=== PATIENT | female | born 1935 | race Caucasian/White ===

== ENCOUNTER 2017-10-23 05:57 | Inpatient (IN) ==
[2017-10-23] MEDS ORDERED: 0.9 % Sodium Chloride 1,000 ML IVC ONE (06:06)
[2017-10-23] MEDS ORDERED: *HR* FentaNYL (PF) 100 MCG/2 ML VIAL IVP ONE (06:06)
--- NOTE | 2017-10-23 06:09 | Emergency Department Note ---
Disposition Clinical Impression: Fall Qualifiers: Encounter type: initial encounter Qualified Code(s): W19.XXXA - Unspecified fall, initial encounter Disposition: Still a Patient Condition: Fair Forms: ED Satisfaction Letter Fall HPI - General Chief Complaint: ED Fall Stated Complaint: fall, right leg pain Time Seen by Provider: 10/23/17 06:02 Source: patient Mode of arrival: EMS Limitations: no limitations Nursing Notes Reviewed: Yes Vital Signs Reviewed: Yes - History of Present Illness HPI Narrative: 82-year-old female presents to the emergency department via EMS for a ball. The subsequent mechanical fall as her bottle and went off and they found her 4 feet away from her bed. Patient is not on a blood thinner she is DNR CCA. She is complaining of mainly right hip pain and she did arrive she had a c-collar on put on via EMS. Patient is unable to move her right leg. She says the pain is 10 out of 10 nonradiating located mainly in the right hip and right leg. To sharp stabbing pain Otherwise she is having no complaints including no headache , blurry vision, neck pain, back pain, fevers, chest pain, shortness of breath, abdominal pain, pain with urination, loss of bladder or bowels - Related Data Previous Rx's Medication Instructions Recorded Lactulose 10 gm PO BID PRN #250 mls 03/30/15 Oxycodone HCl/Acetaminophen 1 each PO Q4HR PRN #8 tablet 07/24/16 [Percocet 5-325 mg Tablet] Allergies Allergy/AdvReac Type Severity Reaction Status Date / Time No Known Allergies Allergy Verified 04/12/15 18:53 Review of Systems: 10 point review of systems done and negative unless otherwise stated in the history of present illness. All systems ED: reviewed and negative except as stated. 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 - Social History Smoking Status: Former smoker Alcohol use: Reports: none Drug use: Reports: none Physical Exam - General Limitations: no limitations General appearance: alert, in no apparent distress - Head Head exam: atraumatic, normocephalic, normal inspection - Eye Eye exam: Present: normal appearance, PERRL, EOMI - ENT ENT exam: normal exam, normal oropharynx, mucous membranes moist - Neck Neck exam: Present: normal inspection, full ROM, trachea midline - Chest Chest inspection: Present: normal inspection, symmetric chest wall rise - Respiratory Respiratory exam: Present: normal lung sounds bilaterally - Cardiovascular Cardiovascular exam: Present: regular rate, normal rhythm, normal heart sounds - Abdominal Exam Abdominal exam: Present: soft, Non-Tender. Absent: tenderness, distention, guarding, rebound, rigidity - Expanded Lower Extremity Exam Hip/Pelvis exam: Present: tenderness (Tenderness while palpating the right hip unable to examine rotation or shortening G to patient having pain.). Absent: full ROM, swelling, abrasion, dislocation Neurovascular/Tendon exam: Present: normal capillary refill. Absent: pulse deficit (Bilateral pedal pulses), motor deficit, sensory deficit - Back Exam Back exam: Present: normal inspection, full ROM. Absent: tenderness - Neurological Exam Neurological exam: Present: alert, oriented X3 - Skin Skin exam: Present: warm, dry, intact, normal color Course Course Narrative: 82-year-old 30 presents to the emergency department from nursing facility via EMS for a fall. Patient is on a Coumadin will get CT of her head and neck due to the unknown fall. This was a mechanical fall. We will get CT of her pelvis due to the right hip pain. We will give patient IV fluids and fentanyl for pain control. Patient is okay with this plan. Disposition pending result Vital Signs Temperature 0 F L 10/23/17 06:06 Pulse Rate 76 10/23/17 06:06 Respiratory Rate 20 10/23/17 06:06 Blood Pressure 130/92 10/23/17 06:06 O2 Sat by Pulse Oximetry 96 10/23/17 06:06 Temperature 0 F L 10/23/17 06:06 Pulse Rate 76 10/23/17 06:06 Respiratory Rate 20 10/23/17 06:06 Blood Pressure 130/92 10/23/17 06:06 O2 Sat by Pulse Oximetry 96 10/23/17 06:06 Oxygen Delivery Oxygen Delivery Room Air Fall - MDM Narrative Medical decision making narrative: 82-year-old female presented with right hip pain after a fall as mechanical fall. We did order CTs I gave panel and IV fluids. Ankit did help with the pain. CT of head and neck are still pending at this time as well as the pelvis. This patient will be signed out to the day team physician. They will follow up on all imaging and make disposition. - Medical Records Medical records reviewed: Yes I reviewed the patient's medical records.
--- NOTE | 2017-10-23 06:27 | Emergency Department Note ---
START Narrative - START START: I examined this patient and my medical decision-making was reviewed with the Resident Physician. I agree with the documented findings, disposition and treatment plan as described except to the extent set forth below. 82 year old john presnets to the ED via EMS [facility]. Virgen states that she is having right hip pain and hit her head without LOC and is not on blood thinners. WE will do CT head, neck, pelvis to rule out fracutre and bleed. Her right hip is internaly rotated and shorter than the left. We will likely sign out patient to the day team.
[2017-10-23] MEDS ORDERED: *HR* LORazepam 0.5 MG TABLET PO ONE (09:25)
[2017-10-23 10:17] LABS: Basophils % 0.1 %; Eosinophils % 0.1 %; Hematocrit 33.8 % (35.3-44.9); Hemoglobin 10.9 g/dL (11.5-15.4); Immature Granulocytes % 0.4 % (0-4); Lymphocytes # 0.3 K/mcL (0.6-4.6); Lymphocytes % 3.5 %; Mean Corpuscular HGB Conc 32.2 g/dL (31.6-35.5); Mean Corpuscular Hemoglobin 31.6 pg (28.0-33.3); Mean Platelet Volume 10.5 fL (9.4-12.4); Monocytes # 0.4 K/mcL (0.0-1.3); Monocytes % 4.3 %; Platelet Count 169 K/mcL (140-400); Red Blood Count 3.45 M/mcL (3.82-4.97); Red Cell Distribution Width 12.5 % (11.5-14.5); Segmented Neutrophils % 91.6 %
[2017-10-23 10:23] LABS: INR 1.2; Prothrombin Time 12.5 Seconds (9.4-12.1)
--- NOTE | 2017-10-23 10:45 | Internal Med History&Physical ---
Date of Encounter: 10/23/17 Time of Encounter: 10:32 Assessment and Plan (1) Intertrochanteric fracture of right femur Current visit: Yes Status: Acute Patient takes Morphine sublingual 5 mg Q4H prn and Percocet 5/325 mg Q4H prn, will resume this. Takes Senna, polyethylene glycol, lactulose, dulcolax for constipation. Will need close monitoring to avoid adverse effects of opiates including sedation and constipation Consulte Orthpedic surgery; Dr. Wells was notified in the ED BMP, INR NPO for now until Ortho eval. Qualifiers: Encounter type: initial encounter Fracture type: closed Fracture alignment: nondisplaced Qualified Code(s): S72.144A - Nondisplaced intertrochanteric fracture of right femur, initial encounter for closed fracture Internal Medicine - H&P: HPI History of present illness: 82-year-old female presents to the emergency department via EMS for a fall. Patient came from skilled nursing. Reported as a mechanical fall 4 feet away from her bed. She is on Percocet at home, no listed anticoagulants. She has dementia at baseline. Patient denied pain to me but she recently received Fentanyl at the time of my evaluation of patient. Per EMR she did initially arrive with 10/10 non-radiating right hip pain and leg pain described as stabbing. She had no initial complaints of headache, blurry vision, neck pain , back pain, fevers, chest pain, shortness of breath, abdominal pain, pain with urination, loss of bladder or bowels. Family present at bedside and states that she has dementia and able to identify herself and only close family members. At baseline she is not aware of her surroundings. In the Ed she was given IV fluids and Fentanyl. CT head without contrast showed a right frontal scalp hematoma but no acute intracranial abnormalities. A CT of pelvis showed right femoral intertrochanteric neck fracture with impaction of fracture fragments. Also incidentally noted large amount of stool in rectal vault with concern for fecal impaction. A CT of lumbar spine showe acute superior endplate deformity of L3 with about 20% loss of vertebral body height. CT of thoracic spine showed an age indeterminate T2 superior endplate compression deformity. Past Med Surg Social Fam HX - Past Medical History Medical history: dementia, fibromyalgia, other Psychiatric history: anxiety - Past Surgical History Surgical History: cholecystectomy - Social History Smoking Status: Former smoker Smokeless Tobacco Status: No Alcohol use: none Drug use: none Internal Medicine - H&P: Meds Lactulose 10 gm PO BID PRN #250 mls 03/30/15 [Rx] Oxycodone HCl/Acetaminophen [Percocet 5-325 mg Tablet] 1 each PO Q4HR PRN #8 tablet 07/24/16 [Rx] Acetaminophen [Tylenol 650mg SUPP] 650 mg RC Q4H PRN 10/23/17 [History] Aspirin [Lo-Dose Aspirin EC] 81 mg PO DAILY 10/23/17 [History] Bisacodyl [Dulcolax] 10 mg RC DAILY PRN 10/23/17 [History] Gabapentin [Neurontin] 100 mg PO HS 10/23/17 [History] Hyoscyamine Sulfate [Oscimin Sl] 0.125 mg SL Q2H PRN 10/23/17 [History] Lactose-Reduced Food [Ensure Original] 1 bottle PO TID 10/23/17 [History] Lansoprazole [Prevacid] 30 mg PO DAILY 10/23/17 [History] MORPHINE SUL Oral CONC [Roxanol Oral Conc] 5 mg PO Q4H PRN 10/23/17 [History] Polyethylene Glycol 3350 [Gavilax] 17 gm PO DAILY PRN 10/23/17 [History] Promethazine [Phenergan] 25 mg RC Q6HR PRN 10/23/17 [History] Sennosides [Senna] 8.6 mg PO DAILY 10/23/17 [History] Sertraline [Zoloft] 100 mg PO DAILY 10/23/17 [History] fluvoxaMINE [Luvox] 100 mg PO HS 10/23/17 [History] 3 Allergy/AdvReac Type Severity Reaction Status Date / Time No Known Allergies Allergy Verified 04/12/15 18:53 All Systems PM: A 10-system review of systems was performed and is negative for pertinent findings except as documented above in the HPI. Review of systems: Limited due to patient dementia and confusion. She denies pain, fevers/chills. Admits to decreased ROM of right hip. - Constitutional Vitals: Temp Pulse Resp BP Pulse Ox 0 F L 79 18 150/74 95 10/23/17 06:06 10/23/17 07:31 10/23/17 07:31 10/23/17 07:31 10/23/17 07:31 General appearance: Present: A&O X 1, no acute distress. Absent: answers questions appropriately - Head Head exam: Present: normocephalic Additional comments: Right scalp hematoma without active bleed. - Eye Eye exam: Present: PERRL, conjuntiva pink, sclera anicteric Pupils: Present: PERRL - Neck Neck exam general surgery: Present: supple, trachea midline. Absent: lymphadenopathy - Respiratory Respiratory exam: Present: CTAB. Absent: accessory muscle use, rales, rhonchi, wheezes - Cardiovascular Cardiovascular exam: Present: RRR, +S1, +S2. Absent: diastolic murmur, gallop, rubs, systolic murmur - GI/Abdominal GI/Abdominal exam: Present: normal bowel sounds, soft, no peritoneal signs. Absent: distended, tenderness - Extremities Exam Extremities exam: Present: warm, radial pulses palpable and symmetrical. Absent : calf tenderness, cyanotic, pedal edema Additional comments: Tenderness to right hip. Lower right extremity is rotated and shortened compared to left leg. Normal cap refill, normal tibia pulses bilaterally. - Neurological Exam Neurological exam: Present: CN II-XII intact, oriented X3, no focal deficits. Absent: pronater drift, facial droop, speech deficit - Skin Skin exam: Present: dry, intact Internal Med - H&P Results - Labs CBC & Chem 7: 10/23/17 10:01
[2017-10-23 10:49] LABS: Alanine Aminotransferase 12 Units/L (7-52); Albumin 3.7 g/dL (3.5-5.7); Albumin/Globulin Ratio 1.4 (1.1-2.2); Alkaline Phosphatase 86 Units/L (34-104); Aspartate Amino Transferase 16 Units/L (13-39); BUN/Creatinine Ratio 28 (6-26); Bilirubin,Total 0.9 mg/dL (0.3-1.0); Blood Urea Nitrogen 16 mg/dL (8-23); Calcium 8.9 mg/dL (8.6-10.3); Carbon Dioxide 24 mEq/L (23-29); Chloride 108 mEq/L (98-107); Globulin 2.6 g/dL (2.4-3.5); Glucose 124 mg/dL (70-105); Osmolality,Calculated 291 (280-300); Potassium 4.1 mEq/L (3.5-5.1); Sodium 139 mEq/L (136-145); Total Protein 6.3 g/dL (6.4-8.9); eGFR For African Americans > 60 (> 60); eGFR For Non-African Americans > 60 (> 60)
[2017-10-23] MEDS ORDERED: Acetaminophen 650 MG RECTAL SUPP RC PRN ×2 (10:49→18:19)
[2017-10-23] MEDS ORDERED: *HR* OxyCODONE/APAP 5/325 TABLET PO PRN ×2 (10:49→18:19)
[2017-10-23] MEDS ORDERED: Bisacodyl 10 MG RECTAL SUPPOSITORY RC PRN ×2 (10:49→18:19)
[2017-10-23] MEDS ORDERED: Lactulose Oral Soln 20 GM/30 ML UDC PO PRN (10:49)
[2017-10-23] MEDS ORDERED: Hyoscyamine SL 0.125 MG TAB.SUBL SL PRN ×2 (10:49→18:19)
[2017-10-23] MEDS ORDERED: POLYETHYLENE GLYCOL 17 GM PO PRN (10:49)
[2017-10-23] MEDS ORDERED: MORPHINE SUL Oral CONC 10 MG/0.5 ML ORAL.SYG PO PRN (10:49)
[2017-10-23 10:53] LABS: Bilirubin,Urine Small (Negative); Blood,Urine Negative (Negative); Clarity,Urine Clear (Clear); Color,Urine Dark Yellow (Yellow); Glucose,Urine (UA) Normal (Normal); Ketones,Urine 15 mg/dL (Negative); Leukocyte Esterase,Urine Negative (Negative); Nitrite,Urine Negative (Negative); Protein,Urine Negative (Neg-Trace); Specific Gravity,Urine 1.022 (1.010-1.025)
[2017-10-23] MEDS ORDERED: Naloxone 0.4 MG/ML INJ IVP PRN ×4 (10:58→18:19)
[2017-10-23] MEDS ORDERED: 0.9 % Sodium Chloride 1,000 ML IVC SCH (11:00)
--- NOTE | 2017-10-23 14:07 | Orthopedic Consult Note ---
Date of Encounter: 10/23/17 Time of Encounter: 13:40 Assessment and Plan (1) Intertrochanteric fracture of right femur Current Visit: Yes Status: Acute Plan for right hip IM nailing today by Dr. Rodriguez. Discussed procedure and r/b/a with family in room. Called son DIANN, discussed again the procedure, r/b/a and got verbal consent for the procedure. Nurse took second verbal consent over the phone. Consent placed in chart in ER. Continue NPO. Continue NWB until surgery. Pain control per hospitalist. Qualifiers: Encounter type: initial encounter Fracture type: closed Fracture alignment: nondisplaced Qualified Code(s): S72.144A - Nondisplaced intertrochanteric fracture of right femur, initial encounter for closed fracture History of Present Illness Chief complaint: right hip pain HPI: Ms. Rodriguez is a 82 year old female who presented to the ER this morning [facility] She was found 4 feet away from bed per report. Patient does have dementia and poor historian. Family present on exam and answered all questions. Patient easily awoken but unable to answer any questions at this time , speech not decipherable and she fell back asleep, family states commonly happens/baseline for her. Family states she has not had anything to eat or drink today. Past Med Surg Social Fam HX - Past Medical History Medical history: dementia, fibromyalgia, other Psychiatric history: anxiety - Past Surgical History Surgical History: cholecystectomy - Social History Smoking Status: Former smoker Smokeless Tobacco Status: No Alcohol use: none Drug use: none - Family History Son Adopted: [place]: Homar Rodriguez Age: 59 Family Member Ethnicity: Non- Living Status: Still Living Medications and Allergies Lactulose 10 gm PO BID PRN #250 mls 03/30/15 [Rx] Oxycodone HCl/Acetaminophen [Percocet 5-325 mg Tablet] 1 each PO Q4HR PRN #8 tablet 07/24/16 [Rx] Acetaminophen [Tylenol 650mg SUPP] 650 mg RC Q4H PRN 10/23/17 [History] Aspirin [Lo-Dose Aspirin EC] 81 mg PO DAILY 10/23/17 [History] Bisacodyl [Dulcolax] 10 mg RC DAILY PRN 10/23/17 [History] Gabapentin [Neurontin] 100 mg PO HS 10/23/17 [History] Hyoscyamine Sulfate [Oscimin Sl] 0.125 mg SL Q2H PRN 10/23/17 [History] Lactose-Reduced Food [Ensure Original] 1 bottle PO TID 10/23/17 [History] Lansoprazole [Prevacid] 30 mg PO DAILY 10/23/17 [History] MORPHINE SUL Oral CONC [Roxanol Oral Conc] 5 mg PO Q4H PRN 10/23/17 [History] Polyethylene Glycol 3350 [Gavilax] 17 gm PO DAILY PRN 10/23/17 [History] Promethazine [Phenergan] 25 mg RC Q6HR PRN 10/23/17 [History] Sennosides [Senna] 8.6 mg PO DAILY 10/23/17 [History] Sertraline [Zoloft] 100 mg PO DAILY 10/23/17 [History] fluvoxaMINE [Luvox] 100 mg PO HS 10/23/17 [History] 3 Allergy/AdvReac Type Severity Reaction Status Date / Time No Known Allergies Allergy Verified 04/12/15 18:53 ROS unobtainable: due to mental status All Systems Reviewed: The remainder of the systems were reviewed and are negative Physical Exam - Constitutional Vitals: Temp Pulse Resp BP Pulse Ox 98.2 F 87 19 138/68 91 10/23/17 11:02 10/23/17 11:02 10/23/17 11:02 10/23/17 11:02 10/23/17 11:02 Exam: Patient easily awoken from sleep and was alert but not oriented and could not answer questions appropriately, mumbled not decipherable. She did express some pain with gentle movement of RLE, no grimacing upon palpation of right hip. No eccymosis, skin lesions or open wounds noted to right hip. Patient unable to follow commands for motion of other joints. Results - Labs Result Diagrams: 10/23/17 10:01 10/23/17 10:01 Labs: Abnormal lab results RBC 3.45 M/mcL (3.82-4.97) L 10/23/17 10:01 Hgb 10.9 g/dL (11.5-15.4) L 10/23/17 10:01 Hct 33.8 % (35.3-44.9) L 10/23/17 10:01 Neutrophils # 9.0 K/mcL (1.6-8.9) H 10/23/17 10:01 Lymphocytes # 0.3 K/mcL (0.6-4.6) L 10/23/17 10:01 PT 12.5 Seconds (9.4-12.1) H 10/23/17 10:01 Chloride 108 mEq/L (98-107) H 10/23/17 10:01 Creatinine 0.58 mg/dL (0.60-1.20) L 10/23/17 10:01 BUN/Creatinine Ratio 28 (6-26) H 10/23/17 10:01 Glucose 124 mg/dL (70-105) H 10/23/17 10:01 Serum Total Protein 6.3 g/dL (6.4-8.9) L 10/23/17 10:01 Urine Ketones 15 mg/dL (Negative) H 10/23/17 10:43 Urine Bilirubin Small (Negative) H 10/23/17 10:43 Urine Urobilinogen 2.0 mg/dL (Normal) H 10/23/17 10:43 All other labs normal. - Diagnostic results Hip x-ray: report reviewed Hip CT: report reviewed (Comminuted right femoral intertrochanteric neck fracture with impaction of), image reviewed Consult Discharge Plan - Plan Referrals: NONE,PCP [Primary Care Provider] - - Attending Attestation Case and plan of care discussed with supervising physician who was available for all aspects of care.
--- NOTE | 2017-10-23 14:15 | Anesthesia Evaluation PreOp ---
Date of Encounter: 10/23/17 Time of Encounter: 14:13 - Past History Planned Operation: Right Hip IM nail Cardiac History: Denies any Significant Hx Pulmonary History: Former smoker ASSEMBLING INSPECTOR History: Other (Dementia, A/D, Fibromyalgia) Other Medical History: Denies Any Significant HX Anesthesia History: Past Anesthesia (GB) : No Alcohol Use: none Drug use: none Medications and Allergies Lactulose 10 gm PO BID PRN #250 mls 03/30/15 [Rx] Oxycodone HCl/Acetaminophen [Percocet 5-325 mg Tablet] 1 each PO Q4HR PRN #8 tablet 07/24/16 [Rx] Acetaminophen [Tylenol 650mg SUPP] 650 mg RC Q4H PRN 10/23/17 [History] Aspirin [Lo-Dose Aspirin EC] 81 mg PO DAILY 10/23/17 [History] Bisacodyl [Dulcolax] 10 mg RC DAILY PRN 10/23/17 [History] Gabapentin [Neurontin] 100 mg PO HS 10/23/17 [History] Hyoscyamine Sulfate [Oscimin Sl] 0.125 mg SL Q2H PRN 10/23/17 [History] Lactose-Reduced Food [Ensure Original] 1 bottle PO TID 10/23/17 [History] Lansoprazole [Prevacid] 30 mg PO DAILY 10/23/17 [History] MORPHINE SUL Oral CONC [Roxanol Oral Conc] 5 mg PO Q4H PRN 10/23/17 [History] Polyethylene Glycol 3350 [Gavilax] 17 gm PO DAILY PRN 10/23/17 [History] Promethazine [Phenergan] 25 mg RC Q6HR PRN 10/23/17 [History] Sennosides [Senna] 8.6 mg PO DAILY 10/23/17 [History] Sertraline [Zoloft] 100 mg PO DAILY 10/23/17 [History] fluvoxaMINE [Luvox] 100 mg PO HS 10/23/17 [History] 3 Allergy/AdvReac Type Severity Reaction Status Date / Time No Known Allergies Allergy Verified 04/12/15 18:53 - Meds/Allergy Pre-op Review Medications Reviewed: Yes Allergies Reviewed: Yes Beta Blockers on Current Med List: No Anesthesia Results - Labs 10/23/17 10:01 10/23/17 10:01 Anesthesia Exam O2 Sat Height 1.57 m Weight 47.627 kg O2 Sat by Pulse Oximetry 91 O2 Sat by Pulse Oximetry 96 O2 Sat by Pulse Oximetry 95 O2 Sat by Pulse Oximetry 94 O2 Sat by Pulse Oximetry 96 O2 Sat by Pulse Oximetry 96 Vital Signs Temp Pulse Resp BP Pulse Ox 0 F L 76 20 130/92 96 10/23/17 06:06 10/23/17 06:06 10/23/17 06:06 10/23/17 06:06 10/23/17 06:06 Vital Signs/O2 Sat, Most Current Temp Pulse Resp BP Pulse Ox 98.2 F 87 19 138/68 91 10/23/17 11:02 10/23/17 11:02 10/23/17 11:02 10/23/17 11:02 10/23/17 11:02 NPO (# of Hours): > 8 hrs Pain Scale: 0 Pain Scale Used: Numeric (1 - 10) - HEENT Pupil (Motor): Pupils equal, EOMI Mallampati: III Teeth: Poor dentition Oral Opening: Greater than 3 - ASSEMBLING INSPECTOR LOC: Confused, Disoriented ASSEMBLING INSPECTOR Motor: Normal RUE, Normal LUE, Normal RLE, Normal LLE, Normal Face ASSEMBLING INSPECTOR Sensory: Normal: RUE, LUE, RLE, LLE, Face - Cardiac Rhythm: Regular Murmur: None JVD: No Carotid Bruit: No - Pulmonary Breath Sounds: bilateral Clear Respiratory Effort: Symmetrical Anesthesia Assess/Plan ASA Score: 3 Modified [place] Scale for Level of Consciousness: Drowsy, but responsive to commands (Dementia, confused, disoriented, consent obtained for Homar Rodriguez ( son, POA)) Anesthetic Plan: General Recovery Plan: PACU
[2017-10-23] MEDS ORDERED: LACTOSE REDUCED FOOD PO SCH (15:00)
[2017-10-23] MEDS ORDERED: *HR* Propofol 200 MG/20 ML VIAL IVP ONE (15:34)
[2017-10-23] MEDS ORDERED: *HR* FentaNYL (PF) 100 MCG/2 ML VIAL ONE (15:34)
[2017-10-23] MEDS ORDERED: Lidocaine -MPF 2% 2 ML VIAL ONE (16:02)
[2017-10-23] MEDS ORDERED: Acetaminophen IV 1,000 MG/100 ML INFUS..BTL ONE (16:04)
[2017-10-23] MEDS ORDERED: Ondansetron 4 MG/2 ML VIAL ONE (16:43)
[2017-10-23] MEDS ORDERED: *HR* Labetalol 100 MG/20 ML MDV IVP PRN ×2 (16:50→18:19)
[2017-10-23] MEDS ORDERED: *HR* FentaNYL (PF) 100 MCG/2 ML VIAL IVP PRN ×2 (16:50→18:19)
[2017-10-23] MEDS ORDERED: Ondansetron 4 MG/2 ML VIAL IVP ONE ×2 (16:50→18:19)
--- NOTE | 2017-10-23 18:06 | Anesthesia Evaluation Post Op ---
Date of Encounter: 10/23/17 Time of Encounter: 18:05 - Vital Signs Vital Signs: Vital Signs/O2 Sat, Most Current Temp Pulse Resp BP Pulse Ox 98.2 F 92 20 136/68 98 10/23/17 17:39 10/23/17 17:59 10/23/17 17:59 10/23/17 17:59 10/23/17 17:59 - Lungs Lungs: Clear Ascult./Percussion - Airway Airway: Non-obstructed - Cardiovascular Regular Rate - Mental Status Mental Status: Confused, Baseline Status - Pain Pain Scale: 0 Pain Scale used: Numeric (1 - 10) - Nausea Vomiting Nausea Vomiting: Not Present - Hydration Hydration: NPO, Chavez catheter - Discharge PostOp Status: Transfer Patient to floor
--- NOTE | 2017-10-23 18:57 | Emergency Department Note ---
START Narrative - START START: Patient had CT scan of the chest, abdomen, pelvis, thoracic and lumbar spines which showed new acute thoracic compression deformity as well as lumbar deformity. I discussed the case with the on-call spinal surgeon who is willing to treat these. [facility]. This was Dr. Gallegos. Additionally I discussed with orthopedics regarding the patient's hip fracture. The patient will be admitted after basic laboratory analyses were obtained. The patient is admitted in stable condition for evaluation of both thoracic fractures and hip fracture.
[2017-10-23] MEDS ORDERED: Gabapentin 100 MG CAPSULE PO SCH (21:00)
[2017-10-24] MEDS: CeFAZolin Premix DUPLEX 2,000 MG/50 ML BAG IVPB SCH ×2 (00:38→07:38)
[2017-10-24] MEDS: D5% in 0.45% NACL 1,000 ML IVC SCH ×2 (00:51→17:09)
[2017-10-24] MEDS: Gabapentin 100 MG CAPSULE PO SCH ×2 (03:34→19:53)
[2017-10-24 06:34] LABS: Hematocrit 23.4 % (35.3-44.9)
[2017-10-24 06:35] LABS: Hemoglobin 7.7 g/dL (11.5-15.4)
[2017-10-24 06:48] LABS: BUN/Creatinine Ratio 30 (6-26); Blood Urea Nitrogen 16 mg/dL (8-23); Carbon Dioxide 24 mEq/L (23-29); Chloride 110 mEq/L (98-107); Glucose 141 mg/dL (70-105); Osmolality,Calculated 290 (280-300); Potassium 3.9 mEq/L (3.5-5.1); Sodium 138 mEq/L (136-145); eGFR For African Americans > 60 (> 60); eGFR For Non-African Americans > 60 (> 60)
[2017-10-24] MEDS: Cholecalciferol (D-3) 1,000 UNIT TABLET PO SCH (07:39)
--- NOTE | 2017-10-24 08:13 | Internal Med Progress Note ---
<Beni Artis - Last Filed: 10/24/17 13:40> Date of Encounter: 10/24/17 Time of Encounter: 09:30 - Assessment and plan (1) Intertrochanteric fracture of right femur Current Visit: Yes Status: Acute Assessment and plan: s/p ORIF yesterday Patient had no complications overnight Pain meds: Tylenol, Fentanyl, Morphine, Percocet, Gabapentin Bowel regimen: Dulcolax, Senna, Prevacid. We will increase senna plus to 2tab BID DVT Prophylaxis: SQ Lovenox Qualifiers: Encounter type: initial encounter Fracture type: closed Fracture alignment: nondisplaced Qualified Code(s): S72.144A - Nondisplaced intertrochanteric fracture of right femur, initial encounter for closed fracture (2) Anemia Current Visit: Yes Status: Acute Assessment and plan: Acute blood loss anemia Patient Hgb 8.1, (7.7 post-op down from 10.9 overnight). No obvious evidence of bleeding, no melena or hematochezia Patient remains hemodynamically stable at this time We will recheck H/H today, consider transfusion if needed Qualifiers: Other causes of anemia: acute posthemorrhagic Qualified Code(s): D62 - Acute posthemorrhagic anemia (3) Dysphagia Current Visit: Yes Status: Acute Assessment and plan: The patient is not swallowing pills or liquids appropriately We will get a speech consult May need to transition to IV meds if necessary Qualifiers: Dysphagia type: unspecified Qualified Code(s): R13.10 - Dysphagia, unspecified - Subjective Interval history: Patient is unresponsive to communication, does not follow commands. She is alert and sitting in a chair next to the bed, and she moans intermittently. The nurse did mention that she is concerned that she cannot swallow pills, she apparently spent most of her medications out when they were attempted to be given earlier. - Constitutional Vitals: Temp Pulse Resp BP Pulse Ox 98.6 F 85 16 106/63 98 10/24/17 07:04 10/24/17 07:04 10/24/17 07:04 10/24/17 07:04 10/24/17 08:00 General appearance: Present: A&O X 0, disheveled, no acute distress. Absent: answers questions appropriately Exam: Gen.: Vitals noted. No acute distress. HEENT: PERRL/EOMI, oropharynx clear, Normocephalic, moderate hematoma apparent on right frontal face Neck: Supple. No adenopathy. Cardiac: RRR, no murmur, +S1/S2 Pulmonary: CTA bilaterally, no wheezes, rales or rhonchi, equal chest expansion Abdomen: soft, nontender, BS noted, no guarding MSK: ROM intact, no joint swelling noted Extremities: no BLE edema, nontender calf, no cyanosis or clubbing Neuro: A&O, does not respond to commands, communicates with moans and pointing but it appears to be without any directed goal Internal Medicine: Result - Labs CBC & Chem 7: 10/24/17 10:14 10/24/17 10:14 Labs: Short CBC 10/24/17 Range/Units 05:37 Hgb 7.7 L D (11.5-15.4) g/dL Hct 23.4 L (35.3-44.9) % BMP 10/24/17 05:37 Sodium 138 Potassium 3.9 Chloride 110 H Carbon Dioxide 24 BUN 16 Creatinine 0.53 L Glucose 141 H Calcium 8.0 L - ABG Interpretation ABG results: PT/INR, D-dimer PT 12.5 Seconds (9.4-12.1) H 10/23/17 10:01 - Impressions Impressions Fluoroscopy 10/23/17 16:23 IMPRESSION: Intraprocedural fluoroscopic spot images as above. See separate procedure report for more information. D/ / Toy Eli MD / Toy Eil MD Interpreting Provider: Toy Eli MD Hip X-Ray 10/23/17 16:23 IMPRESSION: Intraprocedural fluoroscopic spot images as above. See separate procedure report for more information. D/ / Toy Eli MD / Toy Eli MD Interpreting Provider: Toy Eli MD - VTE Documentation of Mechanical Device: Venous foot pump, device Consult Discharge Plan - Plan Referrals: NONE,PCP [Primary Care Provider] - <Darshan Hodges T - Last Filed: 10/24/17 15:03> Date of Encounter: 10/24/17 - Assessment and plan (1) Intertrochanteric fracture of right femur Current Visit: Yes Status: Acute Qualifiers: Encounter type: initial encounter Fracture type: closed Fracture alignment: nondisplaced Qualified Code(s): S72.144A - Nondisplaced intertrochanteric fracture of right femur, initial encounter for closed fracture (2) Anemia Current Visit: Yes Status: Acute Qualifiers: Other causes of anemia: acute posthemorrhagic (3) Dysphagia Current Visit: Yes Status: Acute Qualifiers: Dysphagia type: unspecified Qualified Code(s): R13.10 - Dysphagia, unspecified - Constitutional Vitals: Temp Pulse Resp BP Pulse Ox 98.0 F 95 18 118/67 96 10/24/17 11:52 10/24/17 11:52 10/24/17 11:52 10/24/17 11:52 10/24/17 11:52 Internal Medicine: Result - Labs CBC & Chem 7: 10/24/17 10:14 10/24/17 10:14 Labs: Short CBC 10/24/17 10/24/17 Range/Units 05:37 10:14 WBC 9.7 (4.3-11.1) K/mcL Hgb 7.7 L D 8.1 L (11.5-15.4) g/dL Hct 23.4 L 24.8 L (35.3-44.9) % Plt Count 153 (140-400) K/mcL Neutrophils # 8.3 (1.6-8.9) K/mcL BMP 10/24/17 10/24/17 05:37 10:14 Sodium 138 138 Potassium 3.9 3.8 Chloride 110 H 109 H Carbon Dioxide 24 22 L BUN 16 17 Creatinine 0.53 L 0.63 Glucose 141 H 178 H Calcium 8.0 L 8.4 L - ABG Interpretation ABG results: PT/INR, D-dimer PT 12.5 Seconds (9.4-12.1) H 10/23/17 10:01 - Impressions Impressions Fluoroscopy 10/23/17 16:23 IMPRESSION: Intraprocedural fluoroscopic spot images as above. See separate procedure report for more information. D/ / Toy Eli MD / Toy Eli MD Interpreting Provider: Tyo Eli MD Hip X-Ray 10/23/17 16:23 IMPRESSION: Intraprocedural fluoroscopic spot images as above. See separate procedure report for more information. D/ / Toy Eli MD / Toy Eli MD Interpreting Provider: Toy Eli MD - Attending Attestation I examined this patient and my medical decision-making was reviewed with the Resident Physician. I agree with the documented findings, disposition and treatment plan as described except to the extent set forth below. 82 F, dementia, almost non-verbal. POD 1 s/p ORIF for R femoral fracture Acute blood loss anemia Alert, oriented X0 Wound dressing is clean and dry High risk of delirium-avoid benzos, patient already on SSRIs, continue home meds , d/c Chavez nurse quietly. Allow family members,orient and reorient, haldo in extreme case of self -harm Acute blood loss anemia-type and screen, hemodynamically stable Rest as in the resident physician's documentation
[2017-10-24] MEDS ORDERED: Sennosides 8.6 MG TABLET PO SCH ×2 (09:00)
[2017-10-24] MEDS: *HR* Enoxaparin 30 MG/0.3 ML SYRINGE SQ SCH ×2 (10:42→17:09)
[2017-10-24 11:07] LABS: Basophils % 0.2 %; Eosinophils # 0.1 K/mcL (0.0-0.6); Eosinophils % 0.8 %; Hematocrit 24.8 % (35.3-44.9); Hemoglobin 8.1 g/dL (11.5-15.4); Immature Granulocytes % 0.3 % (0-4); Lymphocytes # 0.5 K/mcL (0.6-4.6); Lymphocytes % 5.1 %; Mean Corpuscular HGB Conc 32.7 g/dL (31.6-35.5); Mean Corpuscular Hemoglobin 31.9 pg (28.0-33.3); Mean Corpuscular Volume 97.6 fL (83.0-100.0); Mean Platelet Volume 10.8 fL (9.4-12.4); Monocytes # 0.7 K/mcL (0.0-1.3); Monocytes % 7.5 %; Neutrophils # 8.3 K/mcL (1.6-8.9); Platelet Count 153 K/mcL (140-400); Red Blood Count 2.54 M/mcL (3.82-4.97); Red Cell Distribution Width 12.9 % (11.5-14.5); Segmented Neutrophils % 86.1 %
[2017-10-24 11:14] LABS: BUN/Creatinine Ratio 27 (6-26); Blood Urea Nitrogen 17 mg/dL (8-23); Calcium 8.4 mg/dL (8.6-10.3); Carbon Dioxide 22 mEq/L (23-29); Chloride 109 mEq/L (98-107); Glucose 178 mg/dL (70-105); Osmolality,Calculated 292 (280-300); Potassium 3.8 mEq/L (3.5-5.1); Sodium 138 mEq/L (136-145); eGFR For African Americans > 60 (> 60); eGFR For Non-African Americans > 60 (> 60)
--- NOTE | 2017-10-24 16:34 | Orthopedics Progress Note ---
Date of Encounter: 10/24/17 Time of Encounter: 01:20 - Assessment and Plan (1) Intertrochanteric fracture of right femur Current Visit: Yes Status: Acute POD#1 s/p right hip IM nailing 10/23/17 WBAT, PT/OT to assess patient this afternoon if she will cooperate. Dressings to right hip to be changed tomorrow. There is bloody drainage noted not outside of borders drawn roughly 5 hours prior to exam. Nurse will contact if starts to increase more. Pain control per hospitalist. Hgb 7.7. Hospitalist managing. plan for repeat H/H this afternoon to determine possible transfusion. DVT prophylaxis - Will require lovenox 30mg q 12 hrs for 2 weeks then aspirin 81mg daily for 4 weeks Will follow up with Gladys Fonseca PA-C in [facility] office on 11/07/17. Qualifiers: Encounter type: initial encounter Fracture type: closed Fracture alignment: nondisplaced Qualified Code(s): S72.144A - Nondisplaced intertrochanteric fracture of right femur, initial encounter for closed fracture Subjective Principal diagnosis: POD#1 s/p right hip IM nailing 10/23/17 Interval history: Patient doing well today with no concerns from patient or family. She is much more alert today but still not able to communicate well. No events overnight. Discussed with nurse the borders drawn around drainage were drawn around 8am this morning. Drainage has not passed this border for roughly 5 hours now. Drainage likely from directly after surgery. Will continue to monitor. She has not had therapy as of time of exam but plan for this afternoon to attempt to work with her. Objective Vital signs: Vital Signs Temp Pulse Resp BP Pulse Ox 10/24/17 11:52 98.0 F 95 18 118/67 96 10/24/17 08:00 98 10/24/17 07:04 98.6 F 85 16 106/63 98 10/24/17 02:41 98.1 F 79 14 129/70 100 10/23/17 23:06 97.9 F 75 14 129/76 99 10/23/17 21:30 98.4 F 77 16 129/75 100 10/23/17 20:30 98.2 F 77 16 132/78 100 10/23/17 19:30 98.3 F 78 16 125/72 100 10/23/17 19:00 97 F L 83 16 124/77 98 10/23/17 18:34 97.4 F L 91 16 135/84 96 10/23/17 18:09 98.5 F 98 22 126/85 98 10/23/17 17:59 92 20 136/68 98 10/23/17 17:49 90 18 136/70 98 10/23/17 17:39 98.2 F 91 14 139/73 100 Intake and Output 10/24/17 10/24/17 10/24/17 07:59 15:59 23:59 Intake Total 50 / 50 Output Total 125 / 125 100 / 100 Balance -75 / -75 -100 / -100 Intake: IV Fluids 50 / 50 Ancef Premix DUPLEX 2,000 mg In 50 / 50 50 ml @ 100 mls/hr IVPB Q8HR [facility] Rx#:[id number] Oral 0 / 0 Output: Straight Cath 25 / 25 Catheter 100 / 100 100 / 100 Urethral (Chavez) 100 / 100 Other: Weight 48.035 kg Patient Weight 10/24/17 23:59 Weight 48.035 kg Incision: healing (dressings have some visible bloody drainage not outside borders drawn, no surrounding erythema or ecchymosis. no calf tenderness to palpation. good dorsiflexion of foot. grossly NV intact.) - Labs CBC & BMP: 10/24/17 10:14 10/24/17 10:14 Labs: Abnormal lab results RBC 2.54 M/mcL (3.82-4.97) L 10/24/17 10:14 Hgb 8.1 g/dL (11.5-15.4) L 10/24/17 10:14 Hct 24.8 % (35.3-44.9) L 10/24/17 10:14 Lymphocytes # 0.5 K/mcL (0.6-4.6) L 10/24/17 10:14 PT 12.5 Seconds (9.4-12.1) H 10/23/17 10:01 Chloride 109 mEq/L (98-107) H 10/24/17 10:14 Carbon Dioxide 22 mEq/L (23-29) L 10/24/17 10:14 BUN/Creatinine Ratio 27 (6-26) H 10/24/17 10:14 Glucose 178 mg/dL (70-105) H 10/24/17 10:14 Calcium 8.4 mg/dL (8.6-10.3) L 10/24/17 10:14 Serum Total Protein 6.3 g/dL (6.4-8.9) L 10/23/17 10:01 Urine Ketones 15 mg/dL (Negative) H 10/23/17 10:43 Urine Bilirubin Small (Negative) H 10/23/17 10:43 Urine Urobilinogen 2.0 mg/dL (Normal) H 10/23/17 10:43 - VTE Documentation of Mechanical Device: Venous foot pump, device Consult Discharge Plan - Plan Referrals: NONE,PCP [Primary Care Provider] -
[2017-10-24] MEDS ORDERED: *HR* Enoxaparin 30 MG/0.3 ML SYRINGE SQ SCH (17:37)
[2017-10-24] MEDS: Sennosides/Docusate Sodium TABLET PO SCH (20:00)
[2017-10-25 06:15] LABS: Basophils % 0.2 %; Eosinophils # 0.1 K/mcL (0.0-0.6); Eosinophils % 1.5 %; Hemoglobin 6.6 g/dL (11.5-15.4); Immature Granulocytes % 0.3 % (0-4); Lymphocytes # 0.9 K/mcL (0.6-4.6); Lymphocytes % 13.4 %; Mean Corpuscular Hemoglobin 31.7 pg (28.0-33.3); Mean Corpuscular Volume 96.2 fL (83.0-100.0); Mean Platelet Volume 10.8 fL (9.4-12.4); Monocytes # 0.8 K/mcL (0.0-1.3); Monocytes % 12.1 %; Neutrophils # 4.8 K/mcL (1.6-8.9); Platelet Count 120 K/mcL (140-400); Red Blood Count 2.08 M/mcL (3.82-4.97); Red Cell Distribution Width 12.8 % (11.5-14.5); Segmented Neutrophils % 72.5 %
[2017-10-25] MEDS: *HR* Enoxaparin 30 MG/0.3 ML SYRINGE SQ SCH ×3 (06:18→17:50)
[2017-10-25] MEDS: MORPHINE SUL Oral CONC 10 MG/0.5 ML ORAL.SYG PO PRN ×3 (06:18→17:16)
[2017-10-25] MEDS: D5% in 0.45% NACL 1,000 ML IVC SCH (06:19)
[2017-10-25] MEDS ORDERED: Furosemide 20 MG/2 ML VIAL IVP ONE (07:24)
--- NOTE | 2017-10-25 07:40 | Internal Med Progress Note ---
<Beni Artis - Last Filed: 10/25/17 12:58> Date of Encounter: 10/25/17 Time of Encounter: 08:15 - Assessment and plan (1) Intertrochanteric fracture of right femur Current Visit: Yes Status: Acute Assessment and plan: s/p ORIF 10/23/17 Patient had no complications overnight Pain meds: Tylenol, Fentanyl, Morphine, Percocet, Gabapentin Bowel regimen: Dulcolax, Senna, Prevacid. The patient refuses oral meds, may require enemas DVT Prophylaxis: SQ Lovenox is held due to excess blood loss Qualifiers: Encounter type: initial encounter Fracture type: closed Fracture alignment: nondisplaced Qualified Code(s): S72.144A - Nondisplaced intertrochanteric fracture of right femur, initial encounter for closed fracture (2) Anemia Current Visit: Yes Status: Acute Assessment and plan: Acute blood loss anemia, worsened Patient Hgb 6.6, (10.9 -> 7.7 -> 8.1). No obvious evidence of bleeding, no melena or hematochezia Patient remains hemodynamically stable at this time We will transfuse 2U PRBC, with lasix inbetween We will recheck H/H today, if obvious source of bleeding is exposed, we will work to rectify Qualifiers: Anemia type: other cause Other causes of anemia: acute posthemorrhagic Qualified Code(s): D62 - Acute posthemorrhagic anemia (3) Fecal impaction Current Visit: Yes Status: Acute Assessment and plan: Fecal impaction in rectal vault seen on CT The patient does not demonstrate signs of abdominal pain on exam She has had one small bowel movement, however it was insignificant We attempted oral laxative therapy, however she will not take pills We will attempt an enema for disimpaction, and rely on manual digital disimpaction as a last line effort (4) Dysphagia Current Visit: No Status: Acute Assessment and plan: The patient is not swallowing pills or liquids appropriately Speech therapy has seen the patient, and determined there is no necessary intervention The patient CAN swallow, but chooses not to Qualifiers: Dysphagia type: unspecified Qualified Code(s): R13.10 - Dysphagia, unspecified - Subjective Interval history: Patient is unresponsive to communication, does not follow commands. The patient does arouse to verbal stimuli, and she is aphasic when she does try to speak. She does appear to have some form of delirium. She has not been taking her pills overnight, and has not received laxatives as result of this. - Constitutional Vitals: Temp Pulse Resp BP Pulse Ox 99.0 F 86 16 120/65 93 10/25/17 07:37 10/25/17 07:37 10/25/17 07:37 10/25/17 07:37 10/25/17 07:37 General appearance: Present: A&O X 0, disheveled, no acute distress. Absent: answers questions appropriately Exam: Gen.: Vitals noted. No acute distress. HEENT: Normocephalic, moderate hematoma apparent on right frontal face which is improved from prior Neck: Supple. No adenopathy. Cardiac: RRR, no murmur, +S1/S2 Pulmonary: CTA bilaterally, no wheezes, rales or rhonchi, equal chest expansion Abdomen: soft, nontender, BS noted, no guarding MSK: ROM intact, no joint swelling noted Extremities: no BLE edema, nontender calf, no cyanosis or clubbing. The dressing over hip incision appears clean without significant blood loss Neuro: A&O, does not respond to commands, communicates with moans and pointing but it appears to be without any directed goal Internal Medicine: Result - Labs CBC & Chem 7: 10/25/17 05:58 10/25/17 05:58 Labs: Short CBC 10/24/17 10/25/17 Range/Units 10:14 05:58 WBC 9.7 6.6 (4.3-11.1) K/mcL Hgb 8.1 L 6.6 L D (11.5-15.4) g/dL Hct 24.8 L 20.0 L (35.3-44.9) % Plt Count 153 120 L (140-400) K/mcL Neutrophils # 8.3 4.8 (1.6-8.9) K/mcL BMP 10/24/17 10:14 Sodium 138 Potassium 3.8 Chloride 109 H Carbon Dioxide 22 L BUN 17 Creatinine 0.63 Glucose 178 H Calcium 8.4 L - ABG Interpretation ABG results: PT/INR, D-dimer PT 12.5 Seconds (9.4-12.1) H 10/23/17 10:01 - VTE Documentation of Mechanical Device: Venous foot pump, device Consult Discharge Plan - Plan Referrals: NONE,PCP [Primary Care Provider] - <Darshan Hodges T - Last Filed: 10/25/17 14:16> Date of Encounter: 10/25/17 - Assessment and plan (1) Intertrochanteric fracture of right femur Current Visit: Yes Status: Acute Qualifiers: Encounter type: initial encounter Fracture type: closed Fracture alignment: nondisplaced Qualified Code(s): S72.144A - Nondisplaced intertrochanteric fracture of right femur, initial encounter for closed fracture (2) Anemia Current Visit: Yes Status: Acute Qualifiers: Anemia type: other cause Other causes of anemia: acute posthemorrhagic Qualified Code(s): D62 - Acute posthemorrhagic anemia (3) Dysphagia Current Visit: No Status: Acute Qualifiers: Dysphagia type: unspecified Qualified Code(s): R13.10 - Dysphagia, unspecified - Constitutional Vitals: Temp Pulse Resp BP Pulse Ox 97.6 F 100 20 99/60 93 10/25/17 11:27 10/25/17 11:27 10/25/17 11:27 10/25/17 11:27 10/25/17 11:27 Internal Medicine: Result - Labs CBC & Chem 7: 10/25/17 05:58 10/25/17 05:58 Labs: Short CBC 10/25/17 Range/Units 05:58 WBC 6.6 (4.3-11.1) K/mcL Hgb 6.6 L D (11.5-15.4) g/dL Hct 20.0 L (35.3-44.9) % Plt Count 120 L (140-400) K/mcL Neutrophils # 4.8 (1.6-8.9) K/mcL BMP 10/25/17 05:58 Sodium 137 Potassium 3.6 Chloride 109 H Carbon Dioxide 26 BUN 14 Creatinine 0.45 L Glucose 126 H Calcium 8.1 L - ABG Interpretation ABG results: PT/INR, D-dimer PT 12.5 Seconds (9.4-12.1) H 10/23/17 10:01 - Attending Attestation I examined this patient and my medical decision-making was reviewed with the Resident Physician. I agree with the documented findings, disposition and treatment plan as described except to the extent set forth below. 82 F, dementia, almost non-verbal. POD 2 s/p ORIF for R femoral fracture Acute blood loss anemia Alert, oriented X0 Wound dressing is clean and dry, distal extremeieis well perfused, chest is CTAB She developed new low grade trmp this a.m, no current suspicion for sepsis Also Hb dropped to 6.6 this a.m, suspect mostly due to blood loss from surgery, no other evidence of bleeding Agree with 2 units blood transfusion Continue DVT prophylxis, risk of DVT supercedes risk of bleeding as patient is s /p hip surgery and immobile High risk of delirium-avoid benzos, patient already on SSRIs, IM geodeon if necessary continue home meds Allow family members,orient and reorient Rest as in the resident physician's documentation
[2017-10-25] MEDS: Cholecalciferol (D-3) 1,000 UNIT TABLET PO SCH (08:55)
[2017-10-25] MEDS: Sennosides/Docusate Sodium TABLET PO SCH ×2 (08:55→20:22)
[2017-10-25 09:37] LABS: BUN/Creatinine Ratio 31 (6-26); Blood Urea Nitrogen 14 mg/dL (8-23); Calcium 8.1 mg/dL (8.6-10.3); Carbon Dioxide 26 mEq/L (23-29); Chloride 109 mEq/L (98-107); Glucose 126 mg/dL (70-105); Osmolality,Calculated 286 (280-300); Potassium 3.6 mEq/L (3.5-5.1); Sodium 137 mEq/L (136-145); eGFR For African Americans > 60 (> 60); eGFR For Non-African Americans > 60 (> 60)
[2017-10-25] MEDS ORDERED: 0.9 % Sodium Chloride 250 ML ONE ×2 (10:51→17:12)
[2017-10-25] MEDS ORDERED: Milk and Molasses Enema 200 ML RC ONE (11:30)
--- NOTE | 2017-10-25 11:38 | Orthopedics Progress Note ---
Date of Encounter: 10/25/17 Time of Encounter: 11:10 - Assessment and Plan (1) Intertrochanteric fracture of right femur Current Visit: Yes Status: Acute POD#2 s/p right hip IM nailing 10/23/17 WBAT, PT/OT assessed patient yesterday but patient is unable to follow commands. Low Hgb this am put therapy on hold. Hopeful she will be more cooperative when she returns to familiar setting at [facility] to participate in therapy there. Dressings will be changed today. Nurse to call for any concerns. Pain control per hospitalist. Hgb 7.7 to 8.1 yesterday, now 6.6 this am. Hospitalist managing and patient currently receiving transfusion. DVT prophylaxis - Will require lovenox 30mg q 12 hrs for 2 weeks then aspirin 81mg daily for 4 weeks upon discharge based on findings for cause of anemia. Will follow up with Gladys Fonseca PA-C in [facility] office on 11/07/17. Qualifiers: Encounter type: initial encounter Fracture type: closed Fracture alignment: nondisplaced Qualified Code(s): S72.144A - Nondisplaced intertrochanteric fracture of right femur, initial encounter for closed fracture Subjective Principal diagnosis: POD#2 s/p right hip IM nailing 10/23/17 Interval history: Patient doing well today patient has no complaint of pain. Patient currently alert today, smiled when I entered the room. Family not present. No events overnight. Therapy on hold due to low Hgb. Objective Vital signs: Vital Signs Temp Pulse Resp BP Pulse Ox 10/25/17 11:27 97.6 F 100 20 99/60 93 10/25/17 11:12 98.4 F 86 13 105/55 95 10/25/17 07:37 99.0 F 86 16 120/65 93 10/24/17 20:46 100.2 F H 98 14 109/61 93 10/24/17 20:00 98.6 F 104 17 126/82 95 10/24/17 11:52 98.0 F 95 18 118/67 96 Intake and Output 10/24/17 10/25/17 10/25/17 23:59 07:59 15:59 Intake Total 0 / 0 1000 / 1000 300 / 300 Balance 0 / 0 1000 / 1000 300 / 300 Intake: IV Fluids 1000 / 1000 D5% And 0.45% Nacl 1000 Ml Bag 1000 / 1000 1,000 ML @ 75 mls/hr IVC . [id number] Rx#:[id number] Oral 0 / 0 Blood Product 300 / 300 Rbcs Leuko Poor As-1 Unit 300 / 300 [id number] Other: # Urine Diapers 2 1 Incision: healing (drainage has not passed borders in over 24 hours, no surrounding erythema, patient unable to follow commands, no reaction/grimace to palpation around hip incision or calf, grossly NV intact) - Labs CBC & BMP: 10/25/17 05:58 10/25/17 05:58 Labs: Abnormal lab results RBC 2.08 M/mcL (3.82-4.97) L 10/25/17 05:58 Hgb 6.6 g/dL (11.5-15.4) L D 10/25/17 05:58 Hct 20.0 % (35.3-44.9) L 10/25/17 05:58 Plt Count 120 K/mcL (140-400) L 10/25/17 05:58 PT 12.5 Seconds (9.4-12.1) H 10/23/17 10:01 Chloride 109 mEq/L (98-107) H 10/25/17 05:58 Creatinine 0.45 mg/dL (0.60-1.20) L 10/25/17 05:58 BUN/Creatinine Ratio 31 (6-26) H 10/25/17 05:58 Glucose 126 mg/dL (70-105) H 10/25/17 05:58 Calcium 8.1 mg/dL (8.6-10.3) L 10/25/17 05:58 Serum Total Protein 6.3 g/dL (6.4-8.9) L 10/23/17 10:01 Urine Ketones 15 mg/dL (Negative) H 10/23/17 10:43 Urine Bilirubin Small (Negative) H 10/23/17 10:43 Urine Urobilinogen 2.0 mg/dL (Normal) H 10/23/17 10:43 - VTE Documentation of Mechanical Device: Venous foot pump, device Consult Discharge Plan - Plan Referrals: NONE,PCP [Primary Care Provider] -
--- NOTE | 2017-10-25 17:12 | Operative Note ---
Date of procedure: 10/23/17 Pre-op diagnosis: Right hip basicervical fracture Post-op diagnosis: same Procedure: Right hip intramedullary nailing Implants: Synthes TFN Anesthesia: BRIGID Surgeon: Lukas Rodriguez Was there an household personal assistant present: No Estimated blood loss (cc): 200 Specimen: 0 Condition: stable Disposition: PACU Procedure in Detail: The patient received IV antibiotics in the holding area. She was brought to the operating room, sign in was performed. The patient underwent general anesthesia on the hospital bed. She was then transferred to the fracture table in supine position. The patient was positioned with the support groin post, the affected right lower extremity in the traction hartman and the contralateral lower extremity in a well-padded limb hartman with a hip flexed and abducted out of the way. Fluoroscopy was then brought in, the fractures visualized, and the fracture reduced. We checked on AP and true lateral view of the hip. Once satisfactory the right hip, from the pelvis down to the knee, was prepped and draped in usual sterile fashion. A timeout was performed. The level of the greater trochanter was palpated, a 4-5 cm oblique incision was made just proximally, , followed by Bovie dissection. The hip abductor was sharply split in line with its fibers with a curved Hudson scissors. The tip of the greater trochanter was palpable. A curved awl was then positioned on the tip. Its position was checked on fluoroscopy, slightly advanced, and we checked the lateral view. Once appropriately positioned, the aggressive awl was then used to open the proximal femur down to level of the lesser trochanter. A short Trochanteric Femoral Nail Advanced with 130 degree neck angle, 10 mm diameter, was assembled, and appropriately inserted into the proximal femur. The appropriate level was checked under fluoroscopy. The triple trochars of 130 degree neck angle was then positioned against the skin, checking fluoroscopy for positioning. Once satisfactory a 2.5 cm incision was made, the fascia was bluntly split along with the muscle fibers of the vastus lateralis. The triple trocar was advanced up against the lateral cortex. The guidepin was then driven up into the femoral head, checking AP and lateral views. The wire was adjusted as needed. A 85 mm long helical blade was chosen. Overdrilled the guidewire, and the helical blade was tapped in place over the guidewire in standard technique. Once close to the edge of the femoral head, the setscrew was then screwed down. The triple trochars for the distal static locking screw were placed in the jig, a 1 cm longitudinal incision was made. The trochars were advanced to the cortex , and drilled across. The depth was measured and a 36 mm long by 5 mm bicortical screw was placed. All trochars and jig were removed. Final fluoroscopy shots were taken and saved showing good AP and lateral views of the hip and also distally at the tip of the nail. The wounds were irrigated with normal saline. Fascia over the abductors was closed with 0 Vicryl [id number] stitches, including the deep subcutaneous fat layer. Subcutaneous tissues were closed with 2-0 Vicryl, and the skin incisions were closed with carolann. Sterile dressings were applied. The patient was transferred to hospital bed where she was extubated and taken to recovery room in stable condition.
[2017-10-25] MEDS: Gabapentin 100 MG CAPSULE PO SCH (20:22)
[2017-10-26 05:36] LABS: BUN/Creatinine Ratio 35 (6-26); Blood Urea Nitrogen 13 mg/dL (8-23); Carbon Dioxide 26 mEq/L (23-29); Chloride 109 mEq/L (98-107); Glucose 167 mg/dL (70-105); Osmolality,Calculated 290 (280-300); Potassium 3.8 mEq/L (3.5-5.1); Sodium 138 mEq/L (136-145); eGFR For African Americans > 60 (> 60); eGFR For Non-African Americans > 60 (> 60)
[2017-10-26 05:48] LABS: Basophils % 0.1 %; Eosinophils % 0.4 %; Hematocrit 29.7 % (35.3-44.9); Hemoglobin 9.5 g/dL (11.5-15.4); Immature Granulocytes % 0.4 % (0-4); Lymphocytes # 0.5 K/mcL (0.6-4.6); Lymphocytes % 7.2 %; Mean Corpuscular Hemoglobin 30.5 pg (28.0-33.3); Mean Corpuscular Volume 95.5 fL (83.0-100.0); Mean Platelet Volume 10.7 fL (9.4-12.4); Monocytes # 0.7 K/mcL (0.0-1.3); Monocytes % 9.7 %; Neutrophils # 6.1 K/mcL (1.6-8.9); Platelet Count 122 K/mcL (140-400); Red Blood Count 3.11 M/mcL (3.82-4.97); Red Cell Distribution Width 15.4 % (11.5-14.5); Segmented Neutrophils % 82.2 %
[2017-10-26] MEDS ORDERED: Ondansetron 4 MG/2 ML VIAL IVP PRN (06:15)
[2017-10-26] MEDS: *HR* Enoxaparin 30 MG/0.3 ML SYRINGE SQ SCH (06:44)
[2017-10-26] MEDS: Cholecalciferol (D-3) 1,000 UNIT TABLET PO SCH (10:41)
--- NOTE | 2017-10-26 11:04 | Discharge Summary ---
<Beni Artis - Last Filed: 10/26/17 13:06> Date of Encounter: 10/26/17 Time of Encounter: 10:59 - Discharge Diagnosis (1) Intertrochanteric fracture of right femur Priority: Primary Status: Acute Qualifiers: Encounter type: initial encounter Fracture type: closed Fracture alignment: nondisplaced Qualified Code(s): S72.144A - Nondisplaced intertrochanteric fracture of right femur, initial encounter for closed fracture (2) Anemia Priority: Secondary Status: Acute Qualifiers: Anemia type: other cause Other causes of anemia: acute posthemorrhagic Qualified Code(s): D62 - Acute posthemorrhagic anemia (3) Fecal impaction Priority: Secondary Status: Resolved Hospital course: Ms. Rodriguez is a 82 year old female with history of dementia and fibromyalgia who presented to the emergency department via EMS from [facility] due to a fall. The fall is reported as mechanical, and happened close to her bed. Upon evaluation in the emergency department, was found patient did have a fracture to her right hip which would require surgical fixation. She underwent this procedure with complication of acute blood loss anemia following the procedure which required transfusion of 2 units of blood. Since that time she is no longer had any problems with anemia, and has improved as far as hemoglobin is concern. In addition of this, the patient did demonstrate fecal impaction with inability to pass stool. Initially we attempted the use of laxative therapy, however the patient is unwilling to swallow pills regularly. We did resort to the use of enemas which allowed her to pass stool. Since that time she has been having moderately frequent loose bowel movements. She has improved clinically, and is medically stable for return to [facility]. She will require two weeks therapy with lovenox for DVT prophylaxis. Discharge discussed with: nurse, social work, case management - Time Spent with Patient Total time spent providing and/or coordinating discharge services: - Discharge Medications Prescriptions: Oxycodone HCl/Acetaminophen [Percocet 5-325 mg Tablet] 1 tab PO Q4HR PRN 2 Days #8 tablet PRN Reason: Pain Enoxaparin [Lovenox] 30 mg SQ Q12HCO 12 Days syringe Gabapentin [Neurontin] 100 mg PO HS #5 capsule MORPHINE SUL Oral CONC [Roxanol Oral Conc] 5 mg PO Q4H PRN 1 Days #8 oral.syg PRN Reason: Pain 7-10 Home Medications: Lactulose 10 gm PO BID PRN #250 mls 03/30/15 [Rx] Acetaminophen [Tylenol 650mg SUPP] 650 mg RC Q4H PRN 10/23/17 [History] Aspirin [Lo-Dose Aspirin EC] 81 mg PO DAILY 10/23/17 [History] Bisacodyl [Dulcolax] 10 mg RC DAILY PRN 10/23/17 [History] Hyoscyamine Sulfate [Oscimin Sl] 0.125 mg SL Q2H PRN 10/23/17 [History] Lactose-Reduced Food [Ensure Original] 1 bottle PO TID 10/23/17 [History] Lansoprazole [Prevacid] 30 mg PO DAILY 10/23/17 [History] MORPHINE SUL Oral CONC [Roxanol Oral Conc] 5 mg PO Q4H PRN 10/23/17 [History] Polyethylene Glycol 3350 [Gavilax] 17 gm PO DAILY PRN 10/23/17 [History] Promethazine [Phenergan] 25 mg RC Q6HR PRN 10/23/17 [History] Sennosides [Senna] 8.6 mg PO DAILY 10/23/17 [History] Sertraline [Zoloft] 100 mg PO DAILY 10/23/17 [History] fluvoxaMINE [Luvox] 100 mg PO HS 10/23/17 [History] Docusate [Colace] 100 mg PO BID capsule 10/26/17 [Rx] Enoxaparin [Lovenox] 30 mg SQ Q12HCO 12 Days syringe 10/26/17 [Rx] Gabapentin [Neurontin] 100 mg PO HS #5 capsule 10/26/17 [Rx] MORPHINE SUL Oral CONC [Roxanol Oral Conc] 5 mg PO Q4H PRN 1 Days #8 oral.syg [Rx] Oxycodone HCl/Acetaminophen [Percocet 5-325 mg Tablet] 1 tab PO Q4HR PRN 2 Days #8 tablet 10/26/17 [Rx] Allergies/Adverse Reactions: 3 Allergy/AdvReac Type Severity Reaction Status Date / Time No Known Allergies Allergy Verified 04/12/15 18:53 Date of admission: 10/23/17 10:58 Primary care physician: PCP NONE Consults: 10/23/17 18:19 Consult to Orthopedic Navigator [CONS] [CONS] Routine Consult to Physical Therapy [CONS] Routine Comment: Evaluate, develop and implement POC Reason for Consult: post hip surgery Does patient have active BEDREST order?: No Is patient medically & hemodynamically stable?: Yes Patient assessed for mobility or mobilized this visit?: Yes Consult to Sharepoint Engineer [CONS] Routine Reason for SW Consult: post -op hip fracture RT Post Op Consult [CONS] Routine Discharging clinician: Beni Artis Anticipated date of discharge: 10/26/17 - Constitutional Vitals: Temp Pulse Resp BP Pulse Ox 98.5 F 93 18 149/87 94 10/26/17 07:21 10/26/17 07:21 10/26/17 07:21 10/26/17 07:21 10/26/17 07:21 General appearance: Present: A&O X 0, disheveled, no acute distress. Absent: answers questions appropriately - Patient Status Disposition: Transfer LTC Condition: Fair Functional capacity at discharge: bed bound Overall status at discharge: patient is not back to baseline - Ambulatory Orders Ambulatory Orders: Basic Metabolic Panel [CHEM] Time Frame: 1 Week, Location: any Hemoglobin and Hematocrit [HEME] Time Frame: 1 Week, Location: any - Discharge Instructions Follow Up With: Gladys Fonseca, PAC [Physician Cert Occupational Therapy Asst] - 11/07/17 8:45 am NONE,PCP [Primary Care Provider] - Additional Instructions: Discharge Instructions: Total Hip Replacement Please call [facility] ([phone]), your Primary Care Physician, or report to the Emergency Room if you have any of the following symptoms: Nausea, vomiting, fever greater that 101.5, swelling, chest pain, shortness of breath, increased pain/redness/drainage/odor for your incision site, numbness/ tingling, or any other concerning symptoms. ACTIVITY:Weight-bearing as tolerated for 8 weeks with hip dislocation precautions that physical therapy taught you. You may progress as tolerated under the guidance of your physical therapist. You do not need to sleep with a pillow between your legs. You can also seep on the operative side or on your stomach. MEDICATIONS: Upon discharge resume your home medications. Take all the medications as prescribed. Take a stool softener if taking narcotic pain medications. Stool softeners are only effective if you drink enough fluids. Drink 6-8 glass of water or fluids a day, unless this is not allowed for another health problem. Despite using stool softeners, if you haven't had a bowel movement in 3 days, please switch to a gentle laxative. Gentle laxatives are sold over the counter. You should have a bowel movement within 24 hours, if not call the office. You will be discharged from the hospital with a prescription for pain medication. You are encouraged to decrease the use of narcotic pain medication as tolerated. Should you require a refill, please call the office. [facility] prescribes narcotic pain medication for only 4-6 weeks after surgery. If you require pain medication beyond this time period, you may be referred to your Primary Care Physician or to the Pain Clinic for further evaluation. Plan ahead for refills on pain medication as many narcotics either need to be picked up at the office or mailed. It is best to call 48-72 hours in advance of needing a prescription refill so you don't run out of medication. To help control the post-operative pain, you may take NSAIDs (Aleve,Advil, Motrin, ibuprofen, naprosyn) or Tylenol as prescribed on the bottle in addition to the pain medication. ANTICOAGULATION (blood thinners): Continue your Aspirin, Lovenox or Coumadin as prescribed to help prevent a blood clot in the leg or in the lungs. As long as your incision remains dry and you tolerate the NSAIDs (Aleve, Advil, Motrin, Ibuprofen, Naprosyn), it is OK to use the NSAIDS while you are taking your anticoagulation medication. Should your incision start to drain, stop the NSAID and contact our office. Common symptoms of blood clot in the legs include: localized pain, swelling, calf tenderness, redness or discoloration of the skin. Blood clot in the lung symptoms include: shortness of breath, rapid pulse, sweating, and chest pain that worsens with deep breathing, coughing up blood, lightheadedness, feelings of anxiety. If you experience any of these symptoms notify your physician immediately, go to the emergency room, or if having trouble breathing, call 911. WOUND CARE: Leave the dressing on for 7 to 10days. You may change the dressing if it is saturated greater than 50%. Do not get the dressing wet at anytime. Wash your hands with antibacterial soap, rinse and dry prior to any wound care. If you have carolann the visiting nurse or rehab facility can remove the stapes 10-14 days after surgery and place steri-strips across the wound. Leave the steri-strips in place until they fall off on their own. You may let water from the shower run on top of the steri-strips. If you do not have a visiting nurse or rehab facility, you will need to return to the office at 10-14 days for the carolann to be removed. If you have itching or redness around the dressing call the office. FOLLOW-UP: Please follow up with your surgeon in the orthopedic clinic in 6 weeks from the day of surgery. If you have carolann that need to be removed, you will need to come back to the office in 10-14 days from the day of surgery. - Diet and Activity Activity: as per physical therapy, increase activity as tolerated Diet: advance to your usual diet - VTE Documentation of Mechanical Device: Venous foot pump, device <Darshan Hodges - Last Filed: 10/26/17 13:56> Date of Encounter: 10/26/17 - Discharge Diagnosis (1) Intertrochanteric fracture of right femur Status: Acute Qualifiers: Encounter type: initial encounter Fracture type: closed Fracture alignment: nondisplaced Qualified Code(s): S72.144A - Nondisplaced intertrochanteric fracture of right femur, initial encounter for closed fracture (2) Anemia Status: Acute Qualifiers: Anemia type: other cause Other causes of anemia: acute posthemorrhagic Qualified Code(s): D62 - Acute posthemorrhagic anemia (3) Dysphagia Status: Acute Qualifiers: Dysphagia type: unspecified Qualified Code(s): R13.10 - Dysphagia, unspecified Hospital course: Ms. Rodriguez is a 82 year old female - Time Spent with Patient Total time spent providing and/or coordinating discharge services: Greater than 30 minutes Date of admission: 10/23/17 10:58 Primary care physician: PCP NONE Consults: 10/23/17 18:19 Consult to Orthopedic Navigator [CONS] [CONS] Routine Consult to Physical Therapy [CONS] Routine Comment: Evaluate, develop and implement POC Reason for Consult: post hip surgery Does patient have active BEDREST order?: No Is patient medically & hemodynamically stable?: Yes Patient assessed for mobility or mobilized this visit?: Yes Consult to Sharepoint Engineer [CONS] Routine Reason for SW Consult: post -op hip fracture RT Post Op Consult [CONS] Routine - Constitutional Vitals: Temp Pulse Resp BP Pulse Ox 98.5 F 103 20 132/82 95 10/26/17 12:28 10/26/17 12:28 10/26/17 12:28 10/26/17 12:28 10/26/17 12:28 - Attending Attestation I examined this patient and my medical decision-making was reviewed with the Resident Physician. I agree with the documented findings, disposition and treatment plan as described except to the extent set forth below. 82 F, dementia, almost non-verbal. POD 2 s/p ORIF for R femoral fracture Acute blood loss anemia due to b lood loss froms urgeyr, stable s/p 2 units RBCs Alert, oriented X0, incomprehensible sounds, which is patient's baseline Patient had refused to co-operate with PTOT Wound dressing is clean and dry, distal extremities well perfused, chest is CTAB She has now begun to have BM She is hemodynamically stable and her mental status is at baseline Medically and clinically stable to be discharged back to [facility] as in the resident physician's documentation
[2017-10-26 12:29] VITALS: BP 132/82
--- NOTE | 2017-10-26 13:02 | Physician Discharge Referral ---
ExtendedCare Referral Info Transfer To: [facility] Provider in Charge: Tracie Provider in Charge after Transfer: PCP Institutional Level of Care: Intermediate - Diagnosis (1) Intertrochanteric fracture of right femur Priority: Primary Status: Acute (2) Anemia Priority: Secondary Status: Acute (3) Fecal impaction Priority: Secondary Status: Resolved - Transfer Medications Prescriptions: Enoxaparin [Lovenox] 30 mg SQ Q12HCO 12 Days syringe Home Medications: Lactulose 10 gm PO BID PRN #250 mls 03/30/15 [Rx] Oxycodone HCl/Acetaminophen [Percocet 5-325 mg Tablet] 1 each PO Q4HR PRN #8 tablet 07/24/16 [Rx] Acetaminophen [Tylenol 650mg SUPP] 650 mg RC Q4H PRN 10/23/17 [History] Aspirin [Lo-Dose Aspirin EC] 81 mg PO DAILY 10/23/17 [History] Bisacodyl [Dulcolax] 10 mg RC DAILY PRN 10/23/17 [History] Gabapentin [Neurontin] 100 mg PO HS 10/23/17 [History] Hyoscyamine Sulfate [Oscimin Sl] 0.125 mg SL Q2H PRN 10/23/17 [History] Lactose-Reduced Food [Ensure Original] 1 bottle PO TID 10/23/17 [History] Lansoprazole [Prevacid] 30 mg PO DAILY 10/23/17 [History] MORPHINE SUL Oral CONC [Roxanol Oral Conc] 5 mg PO Q4H PRN 10/23/17 [History] Polyethylene Glycol 3350 [Gavilax] 17 gm PO DAILY PRN 10/23/17 [History] Promethazine [Phenergan] 25 mg RC Q6HR PRN 10/23/17 [History] Sennosides [Senna] 8.6 mg PO DAILY 10/23/17 [History] Sertraline [Zoloft] 100 mg PO DAILY 10/23/17 [History] fluvoxaMINE [Luvox] 100 mg PO HS 10/23/17 [History] Docusate [Colace] 100 mg PO BID capsule 10/26/17 [Rx] Enoxaparin [Lovenox] 30 mg SQ Q12HCO 12 Days syringe 10/26/17 [Rx] Allergies/Adverse Reactions: 3 Allergy/AdvReac Type Severity Reaction Status Date / Time No Known Allergies Allergy Verified 04/12/15 18:53 - Respiratory Orders Smoking Cessation: Smoking cessation has been advised. For more information, call the [place] [employer] Quit Line at 6-490-DWXG-NOW. - Ancillary Orders May use pressure relief devices daily prn, May consult with Dentist, Automobile Upholstery Trim Installer, Dampener PRN - Advance Directives Living Will: No Power of Satin Finisher: No Code Status: DNR-Arrest - Mobility Orders Bedrest - Rehabiliation Orders Rehab Potential: Poor - Treatments Fleet enema rectally every other day PRN cleansing purposes - Diet Orders Pureed CERTIFICATION: I certify that the transfer of the above named patient to an Extended Care Facility is necessary for the continuing treatment of the diagnosis listed. The above information is true and accurate reflection of patient's current condition. Confidential - Redisclosure prohibited without a patient's written consent.
== END 2017-10-26 13:59 | DRG 481 ==
LOC: 2SOUTHHOLD 05:57 → EMEROO 05:57 → SUATTDRO 10:58 → 2SOUTHHOLD 11:04 → 3NENU 18:09
PROVIDERS: ADMIT Student in an Organized Health Care Education/Training Program; ATTEND Internal Medicine